=== PATIENT | female | born 1950 | race Caucasian/White ===

== ENCOUNTER → 2017-11-03 | Outpatient (CLI) | payer MEDICARE ==
--- NOTE | 2017-11-08 10:00 | RSPPFT ---
DATE OF PROCEDURE: 11/03/17 COMMENTS: Spirometry shows FVC of 2.2 at 67% of predicted, FEV1 of 1.1 at 41%, FEV1/FVC ratio is decreased. Flow is decreased at FEF 25, FEF 50, FEF 75 and FEF 25-75. There is a good response after bronchodilator treatment. Lung volumes show residual volume is increased. TLC is normal. Diffusion capacity is decreased. Flow volume loop indicates an obstructive pattern. Room air arterial blood gases show pH of 7.40, PCO2 of 43, PO2 of 68, BiCarb of 26 and Saturation at 89%. 6-minute walk test shows no de-saturation. IMPRESSION: 1. Moderately severe obstructive lung disease. 2. Good response after bronchodilator treatment. 3. Lung volumes show hyperinflation. 4. Decreased diffusion capacity. 5. Room air blood gases show hypoxia. 6. 6-minute walk test shows no de-saturation.
== END ==
LOC: HRSP 12:00
PROVIDERS: ATTEND Specialist
DX: J44.9 Chronic obstructive pulmonary disease, unspecified (principal)
CPT/HCPCS: 36600; 82805; 94060; 94618; 94726; 94729